=== PATIENT | male | born 1935 | race African-American/Black ===

== ENCOUNTER 2021-03-15 13:51 | Emergency (ER) | payer OTHER ==
[~2021-03-15] VITALS: Ht 177.8 cm; Wt 78.0 kg
[2021-03-15] MEDS ORDERED: SODIUM CHLORIDE 0.9% 500 ML IV ONE (14:15)
[2021-03-15 14:48] LABS: BASOPHILS % 0.6 % (0.0-2.0); EOSINOPHILS % 0.7 % (0.0-5.0); HEMATOCRIT. 37.9 % (42.0-52.0); HEMOGLOBIN. 12.3 g/dL (14.0-18.0); LYMPHOCYTES % 13.1 % (20.0-50.0); MEAN CORPUSCULAR HEMOGLOBIN 28.3 pg (28.0-32.0); MEAN CORPUSCULAR VOLUME 87.6 fL (80.0-94.0); MEAN PLATELET VOLUME 11.1 fl (7.4-10.4); MONOCYTES % 4.7 % (2.0-8.0); NEUTROPHILS % 80.9 % (40.0-76.0); PLATELET 124 x1000/uL (130-400); RED BLOOD CELL COUNT 4.33 mill/uL (4.7-6.1); RED CELL DISTRIBUTION WIDTH 15.2 % (11.6-14.6)
[2021-03-15 14:54] LABS: CHLORIDE 105 mEq/L (98-107)
[2021-03-15 14:57] LABS: PROTHROMBIN TIME 10.5 sec (9.6-11.0)
[2021-03-15 14:58] LABS: ETHANOL BLOOD < 10 mg/dL
[2021-03-15 14:59] LABS: CLARITY URINE CLEAR (CLEAR); COLOR URINE YELLOW (YELLOW); KETONES URINE NEGATIVE (NEGATIVE); LEUKOCYTE ESTERASE URINE NEGATIVE (NEGATIVE); NITRITE URINE NEGATIVE (NEGATIVE); OCCULT BLOOD URINE TRACE (NEGATIVE); PROTEIN URINE 1+ (NEGATIVE); SPECIFIC GRAVITY URINE 1.011 (1.005-1.030); UROBILINOGEN URINE 0.2 E.U./dL (0.2-1.0)
[2021-03-15] MEDS ORDERED: DILTIAZEM HCL 5MG/ML 5ML VIAL IV ONE (15:15)
[2021-03-15] MEDS ORDERED: LEVOFLOXACIN 500MG PREMIX 100 ML IV ONE (15:15)
[2021-03-15 15:22] LABS: *AMPHETAMINES SCREEN URINE NEGATIVE (NEGATIVE)
[2021-03-15 15:23] LABS: *BARBITURATES SCREEN URINE NEGATIVE (NEGATIVE); *BENZODIAZEPINES SCREEN URINE NEGATIVE (NEGATIVE); *COCAINE SCREEN URINE NEGATIVE (NEGATIVE); CANNABINOID URINE SCREEN NEGATIVE (NEGATIVE); METHADONE URINE SCREEN NEGATIVE (NEGATIVE); OPIATES URINE SCREEN NEGATIVE (NEGATIVE)
[2021-03-15 15:24] LABS: PHENCYCLIDINE URINE SCREEN NEGATIVE (NEGATIVE)
[2021-03-15] MEDS ORDERED: DILTIAZEM HCL 5MG/ML 5ML VIAL IV NR (15:30)
[2021-03-15] MEDS ORDERED: FUROSEMIDE 20MG/2ML VIAL IVP ONE (16:00)
[2021-03-15 21:20] VITALS: BP 164/72
== END 2021-03-15 21:40 | disposition short-term general hospital (02) ==
LOC: ER 13:51 → CANBEDREQ 21:52
DX: S50.311A Abrasion of right elbow, initial encounter (principal); R53.1 Weakness; R00.0 Tachycardia, unspecified; R47.81 Slurred speech; I11.9 Hypertensive heart disease without heart failure; E86.0 Dehydration; Z86.73 Personal history of transient ischemic attack (TIA), and cerebral infarction without residual deficits; Z98.890 Other specified postprocedural states; X58.XXXA Exposure to other specified factors, initial encounter; Y93.89 Activity, other specified; Y92.89 Other specified places as the place of occurrence of the external cause; Y99.8 Other external cause status
CPT/HCPCS: 36415; 70450; 71045; 80053; 80305; 80320; 81003; 83605; 83690; 83735; 83880; 84443; 84484; 85025; 85610; 87040; 87086; 93005; 96361; 96365; 96375; 99285; J1940; J1956; J3490; J7040; G0480